=== PATIENT | female | born 2005 | race African-American/Black ===

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

== ENCOUNTER 2025-01-17 07:21 | Emergency (ER) | payer MEDICAID ==
[~2025-01-17] VITALS: Ht 160 cm; Wt 90.9 kg
[~2025-01-17 07:21] MED LIST changes: +CEPH500C PO; +IBUP-1456 PO
[2025-01-17 07:27] VITALS: PULSE 53; RESP 18; TEMP 98.2; O2SAT 99
--- NOTE | 2025-01-17 07:35 | ED.PDOC ---
GI ASSESSMENT HPI Comments 20 year old female brought in by EMS presents to the ED with a chief complaint of abdominal pain onset 2 days. Patient sates she has been experiencing diffused abdominal pain, nausea, vomiting, constipation for the past 2 days. LMP was early this month and states she began heavy bleeding 2 days ago as well as cramps. Patient was seen at hospital in [place] about 1 month ago, was scheduled fir a Cholecystectomy, left AMA prior to surgery. Per EMS, patient was bradycardiac on scene, fluids given as well as pain medication. PMHx ovarian cysts, gallstones, depression, anxiety, asthma. Denies fever, chills, cough, headache, dizziness, blurry vision, chest pain, shortness of breath. No other symptoms or modifying factors present at this time. Time Seen by MD: 07:24 Primary Care Provider: UNKNOWN Reviewed Notes: Medications, Allergies Allergies: Coded Allergies: NO KNOWN ALLERGIES (Unverified , 08/17/16) Home Meds Active Scripts Ibuprofen (Ibuprofen) 800 Mg Tab, 1 TAB PO TID, #30 TAB Prov:IKER LOMELI 07/11/23 Cephalexin Monohydrate (Cephalexin) 500 Mg Cap, 1 CAP PO QID, #40 CAP Prov:IKER LOMELI 07/11/23 Ondansetron Odt 4MG Tab (ZOFRAN PO) 4 Mg Tb, 1 TAB PO Q8HR, #20 TAB ODT TAB-DISSOLVE IN MOUTH, THEN SWALLOW as needed for nausea vomiting Prov:AKIKO POOLE SALESPERSON [place] 06/09/23 Dicyclomine Hcl (BENTYL CAPSULE) 10 Mg Cp, 2 TAB PO TID, #30 CAP As needed for abdominal cramping Prov:AKIKO POOLE SALESPERSON [place] 06/09/23 Amoxicillin & Pot Clavulanate (AUGMENTIN TABLET) 875 Mg Tb, 1 TAB PO BID for 10 Days, #20 TAB Prov:AKIKO POOLE SALESPERSON [place] 06/09/23 Pantoprazole Sodium Sesquihydr (Protonix) 40 Mg Tab, 40 MG PO DAILY, #30 TAB Prov:LIZETT GREER MD 05/25/23 Ondansetron Odt 4MG Tab (ZOFRAN PO) 4 Mg Tb, 4 MG PO Q8HP PRN for 5 Days, #15 T AB ODT TAB-DISSOLVE IN MOUTH, THEN SWALLOW Prov:LIZETT GREER MD 05/25/23 Information Source: Patient, Emergency Med Personnel Mode of Arrival: EMS Timing: Days Duration: Since onset Prehospital treatment: IVF, Pain Meds Severity: Moderate Recent: None Recent Hx of: Constipation Pain Location: Diffuse Associated sign and symptoms: Nausea, Vomiting, Constipation, Abdominal Pain Past Medical History PAST MEDICAL HISTORY: Anxiety, Asthma, Depression, Gallstones Surgical History: Denies all surgeries [employer]OR History: Ovarian Cysts Family History Family History: Reviewed,noncontributory to illness, Family hx of heart geno Social History Smoker: Cigarettes Alcohol: Occasionally Drugs: Marijuana Lives In: Home Constitutional: denies: chills, diaphoresis, fatigue, fever, malaise, sweats, weakness, others EENTM: denies: blurred vision, double vision, ear bleeding, ear discharge, ear drainage, ear pain, ear ringing, eye pain, eye redness, hearing loss, mouth pain, mouth swelling, nasal discharge, nose bleeding, nose congestion, nose pain, photophobia, tearing, throat pain, throat swelling, voice changes, others Respiratory: denies: cough, hemoptysis, orthopnea, SOB at rest, shortness of breath, SOB with excertion, stridor, wheezing, others Cardiovascular: denies: chest pain, dizzy spells, diaphoresis, Dyspnea on exertion, edema, irregular heart beat, left arm pain, lightheadedness, palpi tations, PND, syncope, others Gastrointestinal: reports: abdominal pain, constipated, nausea, vomiting; denies: abdomen distended, blood streaked bowels, diarrhea, dysphagia, difficulty swallowing, hematemesis, melena, poor appetite, poor fluid intake, rectal bleeding, rectal pain, others Genitourinary: denies: abnormal vagina bleeding, burning, dyspareunia, dysuria, flank pain, frequency, hematuria, incontinence, pain, , vagina discharge, urgency, others Neurological: denies: dizziness, fainting, headache, left sided numbness, left sided weakness, numbness, paresthesia, pre-existing deficit, right sided numbness, right sided weakness, seizure, speech problems, tingling, tremors, weakness, others Musculoskeletal: reports: back pain; denies: gout, joint pain, joint swelling, muscle pain, muscle stiffness, neck pain, others Integumetry: denies: bruises, change in color, change in hair/nails, dryness, laceration, lesions, lumps, rash, wounds, others Allergic/Immunocompromised: denies: Difficulty Healing, Frequent Infections, Hives, Itching, others Hematologic/Lymphatic: denies: anemia, blood clots, easy bleeding, easy bruising, swollen glands, others Endocrine: denies: excessive hunger, excessive sweating, excessive thirst, excessive urination, flushing, intolerance to cold, intolerance to heat, unexplained weight gain, unexplained weight loss, others Psychiatric: denies: anxiety, bipolar disorder, depression, hopeless, panic disorder, schizophrenia, sleepless, suicidal, others All Other Systems: Reviewed and Negative Physical Exam General Appearance: No Apparent Distress, Normal HEENT: Normal ENT Inspection, Pharynx Normal, TMs Normal Neck: Full Range of Motion, Non-Tender, Normal, Normal Inspection Respiratory: Chest Non-Tender, Lungs Clear, No Accessory Muscle Use, No Respiratory Distress, Normal Breath Sounds Cardiovascular: No Edema, No JVD, No Murmur, No Gallop, Normal Peripheral Pulses, Regular Rate/Rhythm Breast Exam: Deferred Gastrointestinal: No Organomegaly, Non Tender, No Pulsatile Mass, Normal Bowel Sounds, Soft Genitalia: Deferred Pelvic: Deferred Rectal: Deferred Extremities: No calf tenderness, Normal capillary refill, Normal inspection, Normal range of motion, Non-tender, No pedal edema Musculoskeletal : Apperance: Normal Neurologic: Alert, clinical tech II-XII nml as Tested, No Motor Deficits, Normal Affect, Normal Mood, No Sensory Deficits Cerebellar Function: Normal Reflexes: Normal Skin: Dry, Normal Color, Warm Lymphatic: No Adenopathy Was a procedure done? Was a procedure done?: No GI differential Dx Differential Diagnosis: Appendicitis, Cholecystitis, Gastritis/PUD, Gastroenteritis, Pancreatitis, Urolithiasis, Dehydration, Electrolyte Imbalance, Viral X-Ray, Labs, Meds, VS Vital Signs Date Time Temp Pulse Resp B/P (MAP) Pulse Ox O2 Delivery O2 Flow Rate FiO2 01/17/25 08:41 84 18 128/65 (86) 01/17/25 08:40 84 16 128/65 01/17/25 08:05 74 19 144/88 01/17/25 07:27 98.2 53 14 152/97 (115) 99 01/17/25 07:27 53 18 99 Room Air* 0 21 01/17/25 07:27 98.2 53 14 152/97 (115) 99 98.2 Lab Test 01/17/25 07:51 01/17/25 07:35 Range/Units White Blood Count 10.6 4.4-10.8 10^3/uL Red Blood Count 4.94 4.0-5.20 10^6/uL Hemoglobin 13.8 12.2-16.2 g/dL Hematocrit 42.2 36.0-46.0 % Mean Corpuscular Volume 85.4 80.0-100.0 fL Mean Corpuscular Hemoglobin 28.0 28.0-32.0 pg Mean Corpuscular Hemoglobin Concent 32.7 32.0-36.0 g/dL Red Cell Distribution Width 15.8 H 11.8-14.3 % Platelet Count 353 140-450 10^3/uL Mean Platelet Volume 6.9 6.9-10.8 fL Neutrophils (%) (Auto) 79.0 37.0-80.0 % Lymphocytes (%) (Auto) 14.2 10.0-50.0 % Monocytes (%) (Auto) 6.3 0.0-12.0 % Eosinophils (%) (Auto) 0.1 0.0-7.0 % Basophils (%) (Auto) 0.4 0.0-2.0 % Neutrophils # (Auto) 8.4 1.6-8.6 10 ^3/uL Lymphocytes # (Auto) 1.5 0.4-5.4 10 ^3/uL Monocytes # (Auto) 0.7 0-1.3 10 ^3/uL Eosinophils # (Auto) 0 0-0.8 10 ^3/uL Basophils # (Auto) 0 0-0.2 10 ^3/uL Nucleated Red Blood Cells 0.1 % Sodium Level 136 136-145 mmol/L Potassium Level 3.4 L 3.5-5.1 mmol/L Chloride Level 102 98-107 mmol/L Carbon Dioxide Level 23 20-31 mmol/L Anion Gap 11 5-15 Blood Urea Nitrogen 7 L 9-23 mg/dL Creatinine 0.78 0.550-1.02 mg/dL Glomerular Filtration Rate Calc 111 >90 mL/min BUN/Creatinine Ratio 9.0 L 10.0-20.0 Serum Glucose 108 H 74-106 mg/dL Calcium Level 9.9 8.7-10.4 mg/dL Urine Color Yellow Yellow Urine Clarity Turbid H Clear Urine pH 5.5 5.0-9.0 Urine Specific [place] 1.033 1.001-1.035 Urine Protein 1+ H Negative Urine Ketones 2+ H Negative Urine Blood 3+ H Negative /uL Urine Nitrite Negative Negative Urine Bilirubin Negative Negative Urine Urobilinogen Normal Negative mg/dL Urine Leukocyte Esterase Negative Negative /uL Urine RBC 17 0 - 4 /hpf Urine Microscopic WBC 6 H 0-5 /HPF Urine Squamous Epithelial Cells Mod <5 /hpf Urine Bacteria None seen None Seen /hpf Urine Mucus Few None Seen Urine Glucose Normal Normal mg/dL Urine Test Negative Negative Current Medications Medications (Trade) Dose Ordered Sig/Christiano Route Start Time Stop Time Status Last Admin Sodium Chloride 1,000 ml @ 1,000 mls/hr Q1H ONCE IV 01/17/25 07:45 01/17/25 08:44 DC 01/17/25 07:49 Ondansetron HCl (Zofran) 4 mg ONCE ONCE IV 01/17/25 07:45 01/17/25 07:46 DC 01/17/25 07:49 Morphine Sulfate 4 mg ONCE ONCE IV 01/17/25 08:00 01/17/25 08:01 DC 01/17/25 08:05 [place] [id number] Ph: [phone] DIAGNOSTIC IMAGING Diagnostic Imaging Report : [id number] Signed PATIENT: JUANITO OLSON ACCT: [id number] UNIT: [id number] : 2005 LOC: ER ROOM / BED: / AGE / SEX: 20 / F ADM STATUS: REG ER SERVICE [id number] ORDERING PHYSICIAN: ANA CRISTINA MENDOZA MD PROCEDURE(s): ABPLIV - CT AB PEL WITH IV CON ONLY REASON: abdominal pain ORDER NUMBER(s): [id number], ACCESSION NUMBER(s): [id number] Exam: CT CT AB PEL WITH IV CON ONLY History: abdominal pain Comparison Study: None available at time of dictation. Technique: Multidetector spiral CT of the abdomen was performed from lung bases to pubic symphysis. Axial imaging was performed with intravenous contrast following the uneventful administration of 100 ml Omnipaque 300. Coronal and sagittal multiplanar reformats were obtained from the axial data set by the technologist. Radiation Dose : 1. Abdomen/Pelvis: CTDIvol 18.4 mGy, DLP 921.71 mGy*cm. Findings: Lung Bases: Right lower lobe opacity. Visualized portions of the heart and pericardium are unremarkable. Liver: The liver is normal in size. No focal lesions. Gallbladder and Biliary Tree: The gallbladder is unremarkable. No intrahepatic or extrahepatic biliary ductal dilatation. Spleen: Unremarkable Pancreas: The pancreas enhances normally and there are no focal lesions. The main pancreatic duct is not dilated Adrenal Glands: Unremarkable Kidneys: Kidneys enhance symmetrically. No calculi or hydronephrosis. GI tract: The stomach is grossly normal in appearance. No evidence of small bowel wall thickening or abnormal dilatation to suggest bowel obstruction. Mild wall thickening of the ascending colon. The appendix is visualized and is normal. Peritoneum/mesentery/retroperitoneum. No evidence of free intraperitoneal air. No ascites. No evidence of suspicious lymphadenopathy. Abdominal Wall: Unremarkable. Vasculature: Abdominal aorta and main branches are unremarkable. Normal vascular enhancement. Urinary Bladder: Grossly unremarkable for degree of distention. Pelvic Organs: Unremarkable Musculoskeletal: No aggressive focal bony lesions, acute fractures or dislocation. IMPRESSION: 1. Mild wall thickening of the ascending colon, nonspecific. Acute colitis not excluded. 2. Normal appendix. 3. Right lower lobe opacity which may reflect atelectasis. ATED BY: ALYSHA PALAFOX MD DICTATED DATE/TIME: 01/17/25 1000 SIGNED BY: ALYSHA PALAFOX MD SIGNED DATE/TIME: 01/17/25 1000 CC: Time of 1ST Reevaluation: 07:54 Reevaluation 1ST: Unchanged Patient Education/Counseling: Diagnosis, Treatment, Prognosis Family Education/Counseling: No Family Present Additional Information The following tests were ordered, and results were reviewed by me: BMP, CBC, UA, PREGUA, CT AB PEL WITH IV CON Additional Information was gathered from interviewing the following independent historians: EMS I reviewed and agreed with the following test results read by other providers: CT AB PEL WITH IV CON I discussed treatment and results with medical personnel and: patient Departure 1 Departure Time of Disposition: 10:19 (Patient presented with abdominal pain that was concerning for possible appendicits, gastritis, cholecystitis, colitis, gastro enteritis, or orther possible surgical emergency. Data: 1. I ordered and reviewed the result of at least 3 labs including a CBC, BMP, and Urinalysis. 2. I independently interpreted the following tests: CT Abdoment and Pelvis is concerning for colitis .Risk:This patient has a high risk of morbidity due to further diagnostic testing or treatment and may suffer from an acute abdominal process disorder. Fortunately workup reveals colitis and patient can be safely discharged to home with outpatient follow up.) Impression: Primary Impression: Non-specific colitis Additional Impression: Generalized abdominal pain Disposition: HOME / SELF CARE / HOMELESS Condition: Stable Additional Instructions: You have colitis. This is an infection. You were prescribed antibiotics. Please take as directed. For pain you can take the followinam: Ibuprofen 400mg with food Noon: Acetaminophen 1000mg 4pm: Ibuprofen 400mg with food 8pm: Acetaminophen 1000mg You should follow up with your regular doctor within one week to ensure you are doing better. If your symptoms worsen or you have any other concerns then please return to the ER. e-Prescriptions Amoxicillin & Pot Clavulanate (AUGMENTIN TABLET) 875 Mg Tb 875 MG PO BID for 5 Days, #10 TAB Prov: ANA CRISTINA MENDOZA MD 01/17/25 Discharged With: Self Critical Care Note Critical Care Time?: No Stability Stability form required: No I personally scribed for ANA CRISTINA MENDOZA MD ([email or web address]) on 01/17/25 at 07:35. Electronically submitted by Lissette Mijares ([email or web address]). I personally scribed for ANA CRISTINA MENDOZA MD ([email or web address]) on 01/17/25 at 07:50. Electronically submitted by Lissette Mijares ([email or web address]). I personally scribed for ANA CRISTINA MENDOZA MD ([email or web address]) on 01/17/25 at 10:07. Electronically submitted by Lissette Mijares ([email or web address]). I personally scribed for ANA CRISTINA MENDOZA MD ([email or web address]) on 01/17/25 at 10:08. Electronically submitted by Lissette Mijares ([email or web address]). ANA CRISTINA MENDOZA MD Jan 17, 2025 07:35
[2025-01-17 07:49] LABS: Urine Bacteria None Seen /hpf (None Seen)
[2025-01-17] MEDS: SODIUM CHLORIDE 0.9% 1,000 ML IV ONE (07:49)
[2025-01-17] MEDS: ONDANSETRON HCL 4 MG/2 ML VIAL IV ONE (07:49)
[2025-01-17 08:05] LABS: Urine Blood 3+ /uL (Negative); Urine Clarity Turbid (Clear); Urine Color Yellow (Yellow); Urine Mucus FEW (None Seen); Urine Protein, UAD 1+ (Negative); Urine Specific Gravity 1.033 (1.001-1.035); Urine Squamous Epithelial Cell MOD /hpf (<5); Urine Urobilinogen Normal (Negative); Urine WBC 6 /HPF (0-5); Urine pH 5.5 (5.0-9.0)
[2025-01-17] MEDS: MORPHINE SULFATE 4 MG/ML SYR/VIAL IV ONE (08:05)
[2025-01-17 08:10] LABS: Chloride 102 mmol/L (98-107); Sodium 136 mmol/L (136-145)
[2025-01-17 08:11] LABS: Anion Gap 11 (5-15); Carbon Dioxide 23 mmol/L (20-31)
[2025-01-17 08:12] LABS: Calcium 9.9 mg/dL (8.7-10.4)
[2025-01-17 08:13] LABS: Basophils # (auto) 0 10 ^3/uL (0-0.2); Basophils % (auto) 0.4 % (0.0-2.0); Eosinophils # (auto) 0 10 ^3/uL (0-0.8); Eosinophils % (auto) 0.1 % (0.0-7.0); Hematocrit 42.2 % (36.0-46.0); Hemoglobin 13.8 g/dL (12.2-16.2); Lymphocytes # (auto) 1.5 10 ^3/uL (0.4-5.4); Lymphocytes % (auto) 14.2 % (10.0-50.0); Mean Corpuscular Hgb Conc. 32.7 g/dL (32.0-36.0); Mean Corpuscular Volume 85.4 fL (80.0-100.0); Monocytes # (auto) 0.7 10 ^3/uL (0-1.3); Monocytes % (auto) 6.3 % (0.0-12.0); Neutrophils # (auto) 8.4 10 ^3/uL (1.6-8.6); Nucleated Red Blood Cells % 0.1 %; Platelet Count (auto) 353 10^3/uL (140-450); Red Blood Cells 4.94 10^6/uL (4.0-5.20); Red Cell Distribution Width 15.8 % (11.8-14.3); White Blood Cell 10.6 10^3/uL (4.4-10.8)
[2025-01-17 08:18] LABS: Blood Urea Nitrogen 7 mg/dL (9-23); Glucose 108 mg/dL (74-106); Potassium 3.4 mmol/L (3.5-5.1)
[2025-01-17 08:41] VITALS: BP 128/65; PULSE 84; RESP 18
[2025-01-17] MEDS: IOHEXOL 300 MG/ML 100ML BOTTLE IJ ONE (09:42)
--- NOTE | 2025-01-17 10:02 | DVH ---
Exam: CT CT AB PEL WITH IV CON ONLY History: abdominal pain Comparison Study: None available at time of dictation. Technique: Multidetector spiral CT of the abdomen was performed from lung bases to pubic symphysis. A xial imaging was performed with intravenous contrast following the uneventful administration of 100 m l Omnipaque 300. Coronal and sagittal multiplanar reformats were obtained from the axial data set by the technologist. Radiation Dose : 1. Abdomen/Pelvis: CTDIvol 18.4 mGy, DLP 921.71 mGy*cm. Findings: Lung Bases: Right lower lobe opacity. Visualized portions of the heart and pericardium are unremarkab le. Liver: The liver is normal in size. No focal lesions. Gallbladder and Biliary Tree: The gallbladder is unremarkable. No intrahepatic or extrahepatic biliar y ductal dilatation. Spleen: Unremarkable Pancreas: The pancreas enhances normally and there are no focal lesions. The main pancreatic duct is not dilated Adrenal Glands: Unremarkable Kidneys: Kidneys enhance symmetrically. No calculi or hydronephrosis. GI tract: The stomach is grossly normal in appearance. No evidence of small bowel wall thickening or abnormal dilatation to suggest bowel obstruction. Mild wall thickening of the ascending colon. The ap pendix is visualized and is normal. Peritoneum/mesentery/retroperitoneum. No evidence of free intraperitoneal air. No ascites. No evidenc e of suspicious lymphadenopathy. Abdominal Wall: Unremarkable. Vasculature: Abdominal aorta and main branches are unremarkable. Normal vascular enhancement. Urinary Bladder: Grossly unremarkable for degree of distention. Pelvic Organs: Unremarkable Musculoskeletal: No aggressive focal bony lesions, acute fractures or dislocation. IMPRESSION: 1. Mild wall thickening of the ascending colon, nonspecific. Acute colitis not excluded. 2. Normal appendix. 3. Right lower lobe opacity which may reflect atelectasis.
[2025-01-17] MEDS ORDERED: AUG875T PO (10:21)
[2025-01-17] MEDS ORDERED: AMOXICILLIN/CLAVUL 875 MG TAB PO ONE (10:30)
== END 2025-01-17 10:32 | disposition home or self-care (01) ==
LOC: EDBD 07:21 → ER 07:21
DX: K52.9 Noninfective gastroenteritis and colitis, unspecified (principal); R10.84 Generalized abdominal pain; F41.9 Anxiety disorder, unspecified; F32.9 Major depressive disorder, single episode, unspecified; J45.909 Unspecified asthma, uncomplicated; F17.210 Nicotine dependence, cigarettes, uncomplicated; F15.90 Other stimulant use, unspecified, uncomplicated; Z79.1 Long term (current) use of non-steroidal anti-inflammatories (NSAID); Z79.899 Other long term (current) drug therapy
CPT/HCPCS: 36415; 74177; 80048; 81001; 81025; 85025; 96361; 96374; 96375; 99285; J2270; J2405; J7030; Q9967

== ENCOUNTER 2025-07-22 11:04 | Inpatient (IN) | payer MEDICAID, OTHER ==
[~2025-07-22] VITALS: Ht 160 cm; Wt 84.7 kg
--- NOTE | 2025-07-22 11:26 | ED.PDOC ---
GI ASSESSMENT HPI Comments 20 y.o female presents to the ED for a chief complaint of abdominal pain radiating to her back, associated with nausea and vomiting that started 3 hours ago. Patient reports she was at the center holding her new nephew when pain presented spontaneously, described as sharp, constant and has no alleviating factors. Patient denies any diarrhea, hematemesis, dysuria, fever or chills. Patient mentions hx of marijuana use but last use was 3-4 days ago. Chief Complaint: Nausea/Vomiting Time Seen by MD: 11:15 Primary Care Provider: UNKNOWN Reviewed Notes: Nurses Notes, Medications, Allergies Allergies: Coded Allergies: NO KNOWN ALLERGIES (Unverified , 08/17/16) Home Meds Active Scripts Amoxicillin & Pot Clavulanate (AUGMENTIN TABLET) 875 Mg Tb, 875 MG PO BID for 5 Days, #10 TAB Prov:ANA CRISTINA MENDOZA MD 01/17/25 Ibuprofen (Ibuprofen) 800 Mg Tab, 1 TAB PO TID, #30 TAB Prov:IKER LOMELI 07/11/23 Cephalexin Monohydrate (Cephalexin) 500 Mg Cap, 1 CAP PO QID, #40 CAP Prov:IKER LOMELI 07/11/23 Ondansetron Odt 4MG Tab (ZOFRAN PO) 4 Mg Tb, 1 TAB PO Q8HR, #20 TAB ODT TAB-DISSOLVE IN MOUTH, THEN SWALLOW as needed for nausea vomiting Prov:AKIKO POOLE Q WINDMILL MECHANIC 06/09/23 Dicyclomine Hcl (BENTYL CAPSULE) 10 Mg Cp, 2 TAB PO TID, #30 CAP As needed for abdominal cramping Prov:AKIKO POOLE Q WINDMILL MECHANIC 06/09/23 Amoxicillin & Pot Clavulanate (AUGMENTIN TABLET) 875 Mg Tb, 1 TAB PO BID for 10 Days, #20 TAB Prov:AKIKO POOLE Q WINDMILL MECHANIC 06/09/23 Pantoprazole Sodium Sesquihydr (Protonix) 40 Mg Tab, 40 MG PO DAILY, #30 TAB Prov:LIZETT GREER MD 05/25/23 Ondansetron Odt 4MG Tab (ZOFRAN PO) 4 Mg Tb, 4 MG PO Q8HP PRN for 5 Days, #15 TAB ODT TAB-DISSOLVE IN MOUTH, THEN SWALLOW Prov:LIZETT GREER MD 05/25/23 Information Source: Patient Mode of Arrival: Ambulatory Timing: Hours (3) Duration: Since onset Quality: Sharp Vomitus: Hard Stool: Normal Severity: Moderate Recent: None Recent Hx of: None Pain Location: Diffuse Modifying Factors: Nothing Associated sign and symptoms: Nausea, Vomiting, Abdominal Pain Past Medical History PAST MEDICAL HISTORY: Anxiety, Asthma, Depression, Gallstones Surgical History: Denies all surgeries 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 Family History Family History: Reviewed,noncontributory to illness, Family hx of heart geno Social History Smoker: Cigarettes Alcohol: Occasionally Drugs: Marijuana Lives In: Home Constitutional: denies: chills, diaphoresis, fatigue, fever, malaise, sweats, weakness, others EENTM: denies: blurred vision, double vision, ear bleeding, ear discharge, ear drainage, ear pain, ear ringing, eye pain, eye redness, hearing loss, mouth p ain, mouth swelling, nasal discharge, nose bleeding, nose congestion, nose pain, photophobia, tearing, throat pain, throat swelling, voice changes, others Respiratory: denies: cough, hemoptysis, orthopnea, SOB at rest, shortness of br eath, SOB with excertion, stridor, wheezing, others Cardiovascular: denies: chest pain, dizzy spells, diaphoresis, Dyspnea on exertion, edema, irregular heart beat, left arm pain, lightheadedness, palpitations, PND, syncope, others Gastrointestinal: reports: abdominal pain, nausea, vomiting; denies: abdomen distended, blood streaked bowels, constipated, diarrhea, dysphagia, difficulty swallowing, hematemesis, melena, poor appetite, poor fluid intake, rectal bleeding, rectal pain, others Genitourinary: denies: abnormal vagina bleeding, burning, dyspareunia, dysuria, flank pain, frequency, hematuria, incontinence, pain, , vagina discharge, urgency, others Neurological: denies: dizziness, fainting, headache, left sided numbness, left sided weakness, numbness, paresthesia, pre-existing deficit, right sided numbness, right sided weakness, seizure, speech problems, tingling, tremors, weakness, others Musculoskeletal: reports: back pain; denies: gout, joint pain, joint swelling, muscle pain, muscle stiffness, neck pain, others Integumetry: denies: bruises, change in color, change in hair/nails, dryness, laceration, lesions, lumps, rash, wounds, others Allergic/Immunocompromised: denies: Difficulty Healing, Frequent Infections, Hives, Itching, others Hematologic/Lymphatic: denies: anemia, blood clots, easy bleeding, easy bruising, swollen glands, others Endocrine: denies: excessive hunger, excessive sweating, excessive thirst, excessive urination, flushing, intolerance to cold, intolerance to heat, unexplained weight gain, unexplained weight loss, others Psychiatric: denies: anxiety, bipolar disorder, depression, hopeless, panic disorder, schizophrenia, sleepless, suicidal, others All Other Systems: Reviewed and Negative Physical Exam General Appearance: Moderate Distress HEENT: Normal ENT Inspection, Pharynx Normal, TMs Normal Neck: Full Range of Motion, Non-Tender, Normal, Normal Inspection Respiratory: Chest Non-Tender, Lungs Clear, No Accessory Muscle Use, No Respiratory Distress, Normal Breath Sounds Cardiovascular: No Edema, No JVD, No Murmur, No Gallop, Normal Peripheral Pulses, Regular Rate/Rhythm Breast Exam: Deferred Gastrointestinal: Diffuse, No Organomegaly, No Pulsatile Mass, Normal Bowel Sounds, Soft Genitalia: Deferred Pelvic: Deferred Rectal: Deferred Extremities: No calf tenderness, Normal capillary refill, Normal inspection, Normal range of motion, Non-tender, No pedal edema Musculoskeletal : Apperance: Normal Neurologic: Alert, bias binding folder II-XII nml as Tested, No Motor Deficits, Normal Affect, Normal Mood, No Sensory Deficits Cerebellar Function: Normal Reflexes: Normal Skin: Dry, Normal Color, Warm Peripheral Pulses: 3+ Radial (R), 3+ Radial (L) Lymphatic: No Adenopathy Was a procedure done? Was a procedure done?: No GI differential Dx Differential Diagnosis: Cholangitis, Cholecystitis, Diverticular disease, Esophagitis, Gastritis/PUD, Gastroenteritis, Ovarian cyst/torsion, Pancreatitis, Electrolyte Imbalance, Food Poisoning X-Ray, Labs, Meds, VS Vital Signs Date Time Temp Pulse Resp B/P (MAP) Pulse Ox O2 Delivery O2 Flow Rate FiO2 07/22/25 13:25 98.3 52 14 132/84 (100) 100 98.3 07/22/25 12:28 78 16 137/73 07/22/25 11:58 80 18 117/73 07/22/25 11:05 98.1 80 18 117/73 96 98.1 Lab Test 07/22/25 12:33 07/22/25 12:00 Range/Units Urine Color Light-yellow Yellow Urine Clarity Turbid H Clear Urine pH 8.0 5.0-9.0 Urine Specific [place] 1.017 1.001-1.035 Urine Protein Negative Negative Urine Ketones 1+ H Negative Urine Blood Negative Negative /uL Urine Nitrite Negative Negative Urine Bilirubin Negative Negative Urine Urobilinogen Normal Negative mg/dL Urine Leukocyte Esterase Negative Negative /uL Urine RBC <1 0 - 4 /hpf Urine Microscopic WBC 1 0-5 /HPF Urine Squamous Epithelial Cells Mod <5 /hpf Urine Bacteria Few H None Seen /hpf Urine Glucose Normal Normal mg/dL White Blood Count 5.8 4.4-10.8 10^3/uL Red Blood Count 4.59 4.0-5.20 10^6/uL Hemoglobin 13.0 12.2-16.2 g/dL Hematocrit 38.9 36.0-46.0 % Mean Corpuscular Volume 84.7 80.0-100.0 fL Mean Corpuscular Hemoglobin 28.4 28.0-32.0 pg Mean Corpuscular Hemoglobin Concent 33.5 32.0-36.0 g/dL Red Cell Distribution Width 15.5 H 11.8-14.3 % Platelet Count 292 140-450 10^3/uL Mean Platelet Volume 7.4 6.9-10.8 fL Neutrophils (%) (Auto) 40.4 37.0-80.0 % Lymphocytes (%) (Auto) 51.8 H 10.0-50.0 % Monocytes (%) (Auto) 6.3 0.0-12.0 % Eosinophils (%) (Auto) 0.7 0.0-7.0 % Basophils (%) (Auto) 0.8 0.0-2.0 % Neutrophils # (Auto) 2.3 1.6-8.6 10 ^3/uL Lymphocytes # (Auto) 3.0 0.4-5.4 10 ^3/uL Monocytes # (Auto) 0.4 0-1.3 10 ^3/uL Eosinophils # (Auto) 0 0-0.8 10 ^3/uL Basophils # (Auto) 0 0-0.2 10 ^3/uL Nucleated Red Blood Cells 0.1 % Sodium Level 141 136-145 mmol/L Potassium Level 4.0 3.5-5.1 mmol/L Chloride Level 110 H 98-107 mmol/L Carbon Dioxide Level 22 20-31 mmol/L Anion Gap 9 5-15 Blood Urea Nitrogen < 5 L 9-23 mg/dL Creatinine 0.78 0.550-1.02 mg/dL Glomerular Filtration Rate Calc 111 >90 mL/min BUN/Creatinine Ratio 6.4 L 10.0-20.0 Serum Glucose 79 74-106 mg/dL Calcium Level 9.1 8.7-10.4 mg/dL Current Medications Medications (Trade) Dose Ordered Sig/Christiano Route Start Time Stop Time Status Last Admin Sodium Chloride 1,000 ml @ 1,000 mls/hr Q1H ONCE IV 07/22/25 11:30 07/22/25 12:29 DC 07/22/25 11:56 Morphine Sulfate 4 mg ONCE ONCE IV 07/22/25 11:30 07/22/25 11:31 DC 07/22/25 11:58 Ondansetron HCl (Zofran) 4 mg ONCE ONCE IV 07/22/25 11:30 07/22/25 11:31 DC 07/22/25 11:56 Patient alert. Complaining of abdominal pain. Vitals stable. Answering questions. Establish intravenous access. Was given fluids. Was given morphine. Was given Zofran. WBC within normal limits. Hemoglobin within normal limits. Explained to the patient. Continue monitoring. Continues to have abdominal pain. CT scan of the abdomen. She will be admitted for further studies to resolve her abdominal pain. Time of 1ST Reevaluation: 12:00 Reevaluation 1ST: Unchanged Patient Education/Counseling: Diagnosis, Treatment, Prognosis Family Education/Counseling: No Family Present SEPSIS Sepsis Screen Date sepsis recognized/suspect: Jul 22, 2025 Time Sepsis recognized/suspect: 1107 Recent Procedure: No On Antibiotic Therapy: No Respiratory Rate >20: No Heart Rate >90: No Temp<36 C (96.8 F) or >38.3 C: No SBP <90 or MAP <65 mmHG: No New Acute Mental Status Change: No Is the patient on CPAP, BIPAP,: No Physician Orders Ct Ab Pel Wo Con-No Oral Or Iv (07/22/25 13:46) 1 Liter Bolus Of 0.9% Ns (07/22/25 14:00) Drug Screen (07/22/25 13:46) Vital Signs Date Time Temp Pulse Resp B/P (MAP) Pulse Ox O2 Delivery O2 Flow Rate FiO2 07/22/25 13:25 98.3 52 14 132/84 (100) 100 98.3 07/22/25 12:28 78 16 137/73 07/22/25 11:58 80 18 117/73 07/22/25 11:05 98.1 80 18 117/73 96 98.1 Laboratory Tests Test 07/22/25 12:00 White Blood Count 5.8 10^3/uL (4.4-10.8) Medications Medications Dose Ordered Sig/Christiano Route Start Time Stop Time Status Last Admin Dose Admin Morphine Sulfate 4 mg ONCE ONCE IV 07/22/25 11:30 07/22/25 11:31 DC 07/22/25 11:58 Ondansetron HCl 4 mg ONCE ONCE IV 07/22/25 11:30 07/22/25 11:31 DC 07/22/25 11:56 Sodium Chloride 1,000 ml @ 1,000 mls/hr Q1H ONCE IV 07/22/25 11:30 07/22/25 12:29 DC 07/22/25 11:56 Departure 1 Departure Time of Disposition: 13:46 Impression: Primary Impression: Cannabinoid hyperemesis syndrome Disposition: 09 ADMITTED INPATIENT Admit to: Med Surg Condition: Guarded Critical Care Note Critical Care Time?: No Stability Stability form required: No I personally scribed for RIGO URIBE MD ([email or web address]) on 07/22/25 at 11:26. Electronically submitted by Rosio Arnold ([facility]). RIGO URIBE MD Jul 22, 2025 11:26
[2025-07-22] MEDS: SODIUM CHLORIDE 0.9% 1,000 ML IV ONE ×3 (11:56→15:53)
[2025-07-22] MEDS: ONDANSETRON HCL 4 MG/2 ML VIAL IV ONE (11:56)
[2025-07-22] MEDS: MORPHINE SULFATE 4 MG/ML SYR/VIAL IV ONE (11:58)
[2025-07-22 12:42] LABS: Hematocrit 38.9 % (36.0-46.0); Hemoglobin 13.0 g/dL (12.2-16.2); Mean Corpuscular Hemoglobin 28.4 pg (28.0-32.0); Mean Corpuscular Volume 84.7 fL (80.0-100.0); Nucleated Red Blood Cells % 0.1 %
[2025-07-22 12:45] LABS: Urine Protein, UAD Negative (Negative)
[2025-07-22 12:48] LABS: Potassium 4.0 mmol/L (3.5-5.1); Sodium 141 mmol/L (136-145)
[2025-07-22 12:49] LABS: Anion Gap 9 (5-15); Calcium 9.1 mg/dL (8.7-10.4); Carbon Dioxide 22 mmol/L (20-31)
[2025-07-22 12:54] LABS: Chloride 110 mmol/L (98-107); Glucose 79 mg/dL (74-106)
[2025-07-22 12:57] LABS: BUN/Creatinine Ratio 6.4 (10.0-20.0); Blood Urea Nitrogen < 5 mg/dL (9-23)
[2025-07-22] MEDS: HYDROcodone-ACET 10/325MG TAB PO ONE (13:51)
[2025-07-22 14:26] LABS: Opiate Scree,Urine Pos (NEGATIVE)
[2025-07-22 14:28] LABS: Amphetamine Screen, Urine Neg (NEGATIVE); Barbiturate Scree,Urine Neg (NEGATIVE); Benzodiazephine Screen, Urine Neg (NEGATIVE); Cannabinoid Screen, Urine Pos (NEGATIVE); Cocaine Screen, Urine Neg (NEGATIVE); Phencyclidine Screen, Urine Neg (NEGATIVE)
--- NOTE | 2025-07-22 14:28 | DVH ---
CT CT AB PEL WO CON-NO ORAL OR IV INDICATION: colitis EXAM DATE: 07/22/2025 01:50 PM COMPARISON: US PELVIC on DOS: 06/09/23, CT CT AB PEL WO CON-NO ORAL OR IV on DOS: 06/08/23, CT ABD PELV IS WO CONTRAST on DOS: 12/17/21 RADIATION DOSE: CTDIvol: 11 mGy, DLP: 583 mGy*cm PROCEDURE: Helical CT images were obtained of the abdomen and pelvis without IV contrast Sagittal and coronal reconstructions are provided. ORAL CONTRAST: None. ADDITIONAL IMAGES / REFORMATS: None All C T scans at this medical facility are performed using dose modulation techniques as appropriate to a p erformed exam including the following: Automated exposure control was utilized; adjustment of the MA and/or KV according to patient size; and use of iterative reconstruction technique. FINDINGS: LUNG BASE: Normal. LIVER: Normal. GALLBLADDER AND BILIARY TREE: No calcified gallstones. Normal caliber wall. No intra- or extrahepatic biliary ductal dilation. PANCREAS: Normal. SPLEEN: Normal. BOWEL: Normal. Normal appendix. ADRENALS: Normal. KIDNEYS AND URETER: Normal. BLADDER: Normal. REPRODUCTIVE ORGANS: 4.9 cm left ovarian cystic lesion. LYMPH NODES:No lymphadenopathy. PERITONEUM: No ascites or free air. No other fluid collection. VESSELS: Normal RETROPERITONEUM: Normal. ABDOMINAL WALL: Normal. BONES: Normal. IMPRESSION: No acute intraabdominal abnormality. 4.9 cm left ovarian cystic lesion is incompletely characterized. Consider pelvic US.
--- NOTE | 2025-07-22 14:49 | DVHHP2 ---
Admitting Diagnosis: Nausea and vomiting History of Present Illness 20 y.o female presents to the ED for a chief complaint of abdominal pain radiating to her back, associated with nausea and vomiting that started 3 hours ago. Patient reports she was at the center holding her new nephew when pain presented spontaneously, described as sharp, constant and has no alleviating factors. Patient denies any diarrhea, hematemesis, dysuria, fever or chills. Patient mentions hx of marijuana use but last use was 3-4 days ago. 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 Family History Family History: Reviewed,noncontributory to illness, Family hx of heart geno Social History Smoker: Cigarettes Alcohol: Occasionally Drugs: Marijuana Lives In: Home Allergies: Coded Allergies: NO KNOWN ALLERGIES (Unverified , 08/17/16) Home Meds Active Scripts Amoxicillin & Pot Clavulanate (AUGMENTIN TABLET) 875 Mg Tb, 875 MG PO BID for 5 Days, #10 TAB Prov:ANA CRISTINA MENDOZA MD 01/17/25 Ibuprofen (Ibuprofen) 800 Mg Tab, 1 TAB PO TID, #30 TAB Prov:IKER LOMELI 07/11/23 Cephalexin Monohydrate (Cephalexin) 500 Mg Cap, 1 CAP PO QID, #40 CAP Prov:IKER LOMELI 07/11/23 Ondansetron Odt 4MG Tab (ZOFRAN PO) 4 Mg Tb, 1 TAB PO Q8HR, #20 TAB ODT TAB-DISSOLVE IN MOUTH, THEN SWALLOW as needed for nausea vomiting Prov:AKIKO POOLE CONTENT DEVELOPMENT MANAGER 06/09/23 Dicyclomine Hcl (BENTYL CAPSULE) 10 Mg Cp, 2 TAB PO TID, #30 CAP As needed for abdominal cramping Prov:AKIKO POOLE CONTENT DEVELOPMENT MANAGER 06/09/23 Amoxicillin & Pot Clavulanate (AUGMENTIN TABLET) 875 Mg Tb, 1 TAB PO BID for 10 Days, #20 TAB Prov:AKIKO POOLE CONTENT DEVELOPMENT MANAGER 06/09/23 Pantoprazole Sodium Sesquihydr (Protonix) 40 Mg Tab, 40 MG PO DAILY, #30 TAB Prov:LIZETT GREER MD 05/25/23 Ondansetron Odt 4MG Tab (ZOFRAN PO) 4 Mg Tb, 4 MG PO Q8HP PRN for 5 Days, #15 TAB ODT TAB-DISSOLVE IN MOUTH, THEN SWALLOW Prov:LIZETT GREER MD 05/25/23 Vital Signs Vital Signs Date Time Temp Pulse Resp B/P (MAP) Pulse Ox O2 Delivery O2 Flow Rate FiO2 07/22/25 15:13 55 18 07/22/25 13:25 98.3 132/84 (100) 100 98.3 Physical Exam Generally-70 years old woman, well nourished well developed. Mild distress HEENT-H one nine swelling Heart-regular rate and rhythm Lungs clear to auscultate Abdomen soft, epigastrium, nondistended Musculoskeletal-no edema cyanosis Neuro-AO x3, no focal deficits SEPSIS Sepsis Screen Date sepsis recognized/suspect: Jul 22, 2025 Time Sepsis recognized/suspect: 1107 Recent Procedure: No On Antibiotic Therapy: No Respiratory Rate >20: No Heart Rate >90: No Temp<36 C (96.8 F) or >38.3 C: No SBP <90 or MAP <65 mmHG: No New Acute Mental Status Change: No Is the patient on CPAP, BIPAP,: No Physician Orders Ct Ab Pel Wo Con-No Oral Or Iv (07/22/25 13:46) Admit (07/22/25 15:22) Code Status (07/22/25 15:22) Vital Signs .PER UNIT PROTOCOL (07/22/25 15:22) Review Orders With Adm. (07/22/25 15:22) Encourage Activity As Tolerate (07/22/25 15:22) Regular Diet (07/22/25 Dinner) Sodium Chloride Lock (Saline Lock Ns) (07/22/25 22:00) Vital Signs Date Time Temp Pulse Resp B/P (MAP) Pulse Ox O2 Delivery O2 Flow Rate FiO2 07/22/25 15:13 55 18 07/22/25 13:25 98.3 52 14 132/84 (100) 100 98.3 07/22/25 12:28 78 16 137/73 07/22/25 11:58 80 18 117/73 07/22/25 11:05 98.1 80 18 117/73 96 98.1 Laboratory Tests Test 07/22/25 12:00 White Blood Count 5.8 10^3/uL (4.4-10.8) Medications Medications Dose Ordered Sig/Christiano Route Start Time Stop Time Status Last Admin Dose Admin Acetaminophen/ Hydrocodone Bitart 1 tab ONCE ONCE PO 07/22/25 13:45 07/22/25 13:46 DC 07/22/25 13:51 Morphine Sulfate 4 mg ONCE ONCE IV 07/22/25 11:30 07/22/25 11:31 DC 07/22/25 11:58 Ondansetron HCl 4 mg ONCE ONCE IV 07/22/25 11:30 07/22/25 11:31 DC 07/22/25 11:56 Sodium Chloride 1,000 ml @ 1,000 mls/hr Q1H ONCE IV 07/22/25 11:30 07/22/25 12:29 DC 07/22/25 11:56 Sodium Chloride 1,000 ml @ 1,000 mls/hr Q1H ONCE IV 07/22/25 14:00 07/22/25 14:59 DC 07/22/25 13:53 Results Labs Test 07/22/25 12:33 07/22/25 12:00 Range/Units Urine Color Light-yellow Yellow Urine Clarity Turbid H Clear Urine pH 8.0 5.0-9.0 Urine Specific [place] 1.017 1.001-1.035 Urine Protein Negative Negative Urine Ketones 1+ H Negative Urine Blood Negative Negative /uL Urine Nitrite Negative Negative Urine Bilirubin Negative Negative Urine Urobilinogen Normal Negative mg/dL Urine Leukocyte Esterase Negative Negative /uL Urine RBC <1 0 - 4 /hpf Urine Microscopic WBC 1 0-5 /HPF Urine Squamous Epithelial Cells Mod <5 /hpf Urine Bacteria Few H None Seen /hpf Urine Glucose Normal Normal mg/dL Urine Opiates Screen Pos NEGATIVE Urine Fentanyl Screen Neg NEGATIVE Urine Barbiturates Screen Neg NEGATIVE Urine Phencyclidine Screen Neg NEGATIVE Urine Amphetamines Screen Neg NEGATIVE Urine Benzodiazepines Screen Neg NEGATIVE Urine Cocaine Screen Neg NEGATIVE Urine Cannabinoids Screen Pos NEGATIVE White Blood Count 5.8 4.4-10.8 10^3/uL Red Blood Count 4.59 4.0-5.20 10^6/uL Hemoglobin 13.0 12.2-16.2 g/dL Hematocrit 38.9 36.0-46.0 % Mean Corpuscular Volume 84.7 80.0-100.0 fL Mean Corpuscular Hemoglobin 28.4 28.0-32.0 pg Mean Corpuscular Hemoglobin Concent 33.5 32.0-36.0 g/dL Red Cell Distribution Width 15.5 H 11.8-14.3 % Platelet Count 292 140-450 10^3/uL Mean Platelet Volume 7.4 6.9-10.8 fL Neutrophils (%) (Auto) 40.4 37.0-80.0 % Lymphocytes (%) (Auto) 51.8 H 10.0-50.0 % Monocytes (%) (Auto) 6.3 0.0-12.0 % Eosinophils (%) (Auto) 0.7 0.0-7.0 % Basophils (%) (Auto) 0.8 0.0-2.0 % Neutrophils # (Auto) 2.3 1.6-8.6 10 ^3/uL Lymphocytes # (Auto) 3.0 0.4-5.4 10 ^3/uL Monocytes # (Auto) 0.4 0-1.3 10 ^3/uL Eosinophils # (Auto) 0 0-0.8 10 ^3/uL Basophils # (Auto) 0 0-0.2 10 ^3/uL Nucleated Red Blood Cells 0.1 % Sodium Level 141 136-145 mmol/L Potassium Level 4.0 3.5-5.1 mmol/L Chloride Level 110 H 98-107 mmol/L Carbon Dioxide Level 22 20-31 mmol/L Anion Gap 9 5-15 Blood Urea Nitrogen < 5 L 9-23 mg/dL Creatinine 0.78 0.550-1.02 mg/dL Glomerular Filtration Rate Calc 111 >90 mL/min BUN/Creatinine Ratio 6.4 L 10.0-20.0 Serum Glucose 79 74-106 mg/dL Calcium Level 9.1 8.7-10.4 mg/dL Primary Diagnosis Nausea and vomiting likely due to cannabinoid hyperemesis syndrome Plan CT abdomen and pelvis shows no acute any infection IV fluids Antiemetic Pain control Full code Lovenox for DVT prophylaxis Regular diet GI prophylaxis with a PPI Plan discussed with: Patient Problems List: (1) Cannabinoid hyperemesis syndrome Status: Acute Date of Service: Jul 22, 2025 Billing Provider: BOBO MOSLEY MD Common Visit Codes: [id number] INP/OBS CARE (MOD) BOBO MOSLEY MD Jul 22, 2025 14:49
[2025-07-22] MEDS ORDERED: ONDANSETRON HCL 4 MG/2 ML VIAL IV PRN (15:30)
[2025-07-22] MEDS ORDERED: ACETAMINOPHEN 325 MG TAB PO PRN (15:30)
[2025-07-22] MEDS ORDERED: DOCUSATE SOD 100 MG CAP PO PRN (15:30)
[2025-07-22 18:15] VITALS: BP 129/60; PULSE 58; RESP 16; TEMP 98.2; O2SAT 98
[2025-07-22] MEDS: HYDROcodone-ACET 5/325MG TAB PO PRN (18:54)
[2025-07-22 20:00] VITALS: BP 114/70; PULSE 64; RESP 15; TEMP 98.2; O2SAT 98
[2025-07-22] MEDS: SODIUM CHLOR 0.9% PF (SALINE LOCK) 10ML VIAL/SYR IV SCH (23:06)
[2025-07-23] VITALS (7 sets, daily range): BP systolic 125–148; BP diastolic 73–86; PULSE 50–70; RESP 14–18; TEMP 97.8–98.9; O2SAT 97–100
[2025-07-23] MEDS: HYDROmorphone HCL 2 MG/ML VL/or syr IV PRN (00:37)
[2025-07-23 05:08] LABS: Hematocrit 35.4 % (36.0-46.0); Hemoglobin 11.6 g/dL (12.2-16.2); Mean Corpuscular Hemoglobin 28.2 pg (28.0-32.0); Mean Corpuscular Volume 85.7 fL (80.0-100.0); Nucleated Red Blood Cells % 0.2 %
[2025-07-23 05:15] LABS: Albumin 3.8 g/dL (3.2-4.8); Alkaline Phosphatase 68 U/L (46-116); Anion Gap 7 (5-15); BUN/Creatinine Ratio 6.5 (10.0-20.0); Carbon Dioxide 23 mmol/L (20-31); Glucose 88 mg/dL (74-106); Magnesium 2.1 mg/dL (1.6-2.6); Potassium 3.9 mmol/L (3.5-5.1); Sodium 139 mmol/L (136-145); Total Protein 6.0 g/dL (5.7-8.2)
[2025-07-23 05:16] LABS: Bilirubin, Total 0.7 mg/dL (0.2-1.0)
[2025-07-23 05:22] LABS: Alanine Aminotransferase < 9 U/L (7-40); Blood Urea Nitrogen 6 mg/dL (9-23); Calcium 8.6 mg/dL (8.7-10.4); Chloride 109 mmol/L (98-107)
[2025-07-23] MEDS: ENOXAPARIN SOD 40 MG/0.4 ML SYRINGE SC SCH (08:18)
[2025-07-23] MEDS ORDERED: HALOPERIDOL LACTATE 5 MG/ML INJ VIAL IM PRN (10:00)
[2025-07-23] MEDS: MAALOX PLUS or MAALOX 30 ML PO SCH (10:39)
[2025-07-23] MEDS: HALOPERIDOL LACTATE 5 MG/ML INJ VIAL IM ONE (10:40)
[2025-07-23] MEDS: FAMOTIDINE 20 MG TAB PO SCH (10:41)
[2025-07-23] MEDS: diphenhdrAMINE HCL 50 MG/1 ML VL ONE (12:42)
--- NOTE | 2025-07-23 15:05 | DVHPN2 ---
Assessment/Plan Assessment/Plan Subjective History of Present Illness 20-year-old female with a history of anxiety, asthma, depression, ovarian cysts, and gallstones presents to the ED with abdominal pain, nausea, and vomiting that started 3 hours prior to admission. The patient reports sudden onset of abdominal pain localized around the belly button, described as mild. Nausea and vomiting accompanied the pain, with vomit described as green, dark yellow, and foamy. No diarrhea, chills, or fever were reported. This is the first occurrence of these symptoms. The patient ate a taco from [employer] the night before admission, which may be related to her symptoms. She also reports occasional marijuana use, with last use 3-4 days ago. The patient denies recent illness, travel, or exposure to sick individuals. She is not currently taking any medications. Associated symptoms include a raw mouth and sore throat, without trauma or swelling. The patient also notes increased urinary frequency, possibly due to fluid intake. The patient recently moved from [place] to [place] and is in the process of finding a new doctor. 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 Social history includes occasional alcohol use, but she denies smoking cigarettes or using other drugs. Objective Physical Examination General: Alert and oriented. HEENT: Moist mucous membranes. Raw mouth and sore throat noted, without trauma or swelling. Respiratory: Clear breath sounds. Cardiovascular: Regular heart rate and rhythm. Abdomen: Soft, non-tender abdomen with slight epigastric tenderness. Musculoskeletal: Lower extremity exam normal. 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 Plan discussed with: Patient My Orders Orders - AUGIE EGAN MD Procedure Category Date Status Time Haloperidol Lactate PHA 07/23/25 In Process Injection (Haldol) 10:00 Famotidine Tablet PHA 07/23/25 In Process (Pepcid Tablet) 10:00 Alum & Mag PHA 07/23/25 In Process Hydrox-Simethicone 12:00 Date of Service: Jul 23, 2025 Billing Provider: AUGIE EGAN MD Common Visit Codes: [id number] INP/OBS CARE(MOD) AUGIE EGAN MD Jul 23, 2025 15:05
--- NOTE | 2025-07-23 15:57 | DVH ---
ULTRASOUND ABDOMEN, LIMITED RIGHT UPPER QUADRANT: REASON FOR EXAM: cholelithiasis. r/o cholecystitis TECHNIQUE: Real-time sector scans in the transverse and longitudinal planes were obtained through th e right upper quadrant of the abdomen. FINDINGS: The liver is at the upper limits of normal for size measuring 17.4 cm in length. The liver surface appears smooth. There is no intrahepatic nor extrahepatic biliary ductal dilatation. The co mmon bile duct measures 4 mm. The gallbladder is partially contracted. No gallstone is identified. There is no gallbladder wall thickening. There is no sonographic Lilly's sign. The pancreas is obscured by bowel gas. The right kidney measures 9.5 cm. No hydronephrosis or nephrolithiasis is identified. There is no e vidence of right renal mass or cyst. The visualized portions of the abdominal aorta demonstrate no evidence of aneurysmal dilatation. The visualized inferior vena cava is unremarkable. There is no free fluid identified in the right upper quadrant. IMPRESSION: No gallstone identified. No sonographic Lilly's sign. The gallbladder is not distended. No evidence for acute cholecystitis.
[2025-07-24 01:00] VITALS: BP 128/75; PULSE 52; RESP 18; TEMP 98.9; O2SAT 100
[2025-07-24 05:00] VITALS: BP 107/42; PULSE 57; RESP 18; TEMP 97.8; O2SAT 100
[2025-07-24 07:56] LABS: Hematocrit 37.5 % (36.0-46.0); Hemoglobin 12.5 g/dL (12.2-16.2); Mean Corpuscular Hemoglobin 28.4 pg (28.0-32.0); Mean Corpuscular Volume 85.5 fL (80.0-100.0)
[2025-07-24 08:00] VITALS: PULSE 57; RESP 18; O2SAT 99
[2025-07-24 08:03] LABS: Alanine Aminotransferase 10 U/L (7-40); Albumin 3.8 g/dL (3.2-4.8); Alkaline Phosphatase 66 U/L (46-116); Anion Gap 8 (5-15); Bilirubin, Total 0.7 mg/dL (0.2-1.0); Calcium 8.7 mg/dL (8.7-10.4); Carbon Dioxide 24 mmol/L (20-31); Chloride 106 mmol/L (98-107); Glucose 98 mg/dL (74-106); Magnesium 2.0 mg/dL (1.6-2.6); Potassium 3.8 mmol/L (3.5-5.1); Sodium 138 mmol/L (136-145); Total Protein 6.3 g/dL (5.7-8.2)
[2025-07-24 08:06] LABS: BUN/Creatinine Ratio 5.7 (10.0-20.0); Blood Urea Nitrogen < 5 mg/dL (9-23)
[2025-07-24 08:57] VITALS: BP 120/79; PULSE 57; RESP 18; TEMP 98.7; O2SAT 99
[2025-07-24 09:30] LABS: Total Cells Counted 100.0 (100)
--- NOTE | 2025-07-24 09:38 | DVHPNRES ---
Progress Note Objective vital signs Vital Sign Date Time Temp Pulse Resp B/P (MAP) Pulse Ox O2 Delivery O2 Flow Rate FiO2 07/24/25 08:57 98.7 57 18 120/79 (93) 99 98.7 07/23/25 20:00 Room Air* 0 21 Total Intake and Output 07/23/25 07/23/25 07/24/25 15:00 23:00 07:00 Intake Total 500 ml 800 ml Balance 500 ml 800 ml medications Current Medications Medications Dose Ordered Sig/Christiano Route Start Time Stop Time Status Last Admin Dose Admin Sodium Chloride 10 ml Q8HR IV 07/22/25 22:00 07/24/25 05:50 10 ML Acetaminophen 650 mg Q6HP PRN PO 07/22/25 15:30 Acetaminophen/ Hydrocodone Bitart 1 tab Q4HP PRN PO 07/22/25 15:30 07/24/25 05:49 1 TAB Ondansetron HCl 4 mg Q4HP PRN IV 07/22/25 15:30 Haloperidol Lactate 2.5 mg Q8HP PRN IM 07/23/25 10:00 Famotidine 20 mg Q12HR PO 07/23/25 10:00 07/23/25 21:20 20 MG Al Hydrox/Mg Hydrox/Simethicone 30 ml Q6HR PO 07/23/25 12:00 07/24/25 05:45 30 ML laboratory and microbiology Laboratory Tests 07/24/25 06:24 Test 07/24/25 06:24 Range/Units Serum Glucose 98 74-106 mg/dL SHAUNA GILBERT RESIDENT Jul 24, 2025 09:38
[2025-07-24] MEDS: POLYETHYLENE GLYCOL 17 GM PWDR PO ONE (11:15)
[2025-07-24] MEDS: SODIUM CHLORIDE 0.9% 1,000 ML IV ONE (11:15)
[2025-07-24 12:34] VITALS: BP 130/86; PULSE 59; RESP 18; TEMP 98.2; O2SAT 100
[2025-07-24] MEDS ORDERED: DOCU-94 PO (13:02)
--- NOTE | 2025-07-24 18:08 | DVHDSRES ---
Discharge Summary Date of Admission Resident Creating Document: SHAUNA GILBERT RESIDENT Jul 22, 2025 at 15:22 Date of Discharge: Jul 24, 2025 Admitting Diagnosis Intractable Abdominal pain, nausea and vomiting Labs/Diagnostic Data: Laboratory Results Test 07/24/25 06:24 07/23/25 12:25 07/23/25 04:08 07/22/25 12:33 White Blood Count 5.7 10^3/uL (4.4-10.8) Red Blood Count 4.39 10^6/uL (4.0-5.20) Hemoglobin 12.5 g/dL (12.2-16.2) Hematocrit 37.5 % (36.0-46.0) Mean Corpuscular Volume 85.5 fL (80.0-100.0) Mean Corpuscular Hemoglobin 28.4 pg (28.0-32.0) Mean Corpuscular Hemoglobin Concent 33.2 g/dL (32.0-36.0) Red Cell Distribution Width 14.5 % (11.8-14.3) Platelet Count 241 10^3/uL (140-450) Mean Platelet Volume 7.8 fL (6.9-10.8) Neutrophils (%) (Auto) % (37.0-80.0) Lymphocytes (%) (Auto) % (10.0-50.0) Monocytes (%) (Auto) % (0.0-12.0) Basophils (%) (Auto) % (0.0-2.0) Neutrophils # (Auto) 10 ^3/uL (1.6-8.6) Lymphocytes # (Auto) 10 ^3/uL (0.4-5.4) Monocytes # (Auto) 10 ^3/uL (0-1.3) Differential Total Cells Counted 100.0 (100) Neutrophils % (Manual) 22 (37.0-80.0) Band Neutrophils % (Manual) 0 Lymphocytes % (Manual) 61 (10.0-50.0) Monocytes % (Manual) 15 (0-12) Eosinophils % (Manual) 2 (0-7) Basophils % (Manual) 0 (0.0-2.0) Metamyelocytes % (manual) 0 Myelocytes % (Manual) 0 Promyelocytes % (Manual) 0 Blast Cells % (Manual) 0 Reactive Lymphocytes 0 Platelet Estimate Adequate Sodium Level 138 mmol/L (136-145) Potassium Level 3.8 mmol/L (3.5-5.1) Chloride Level 106 mmol/L (98-107) Carbon Dioxide Level 24 mmol/L (20-31) Anion Gap 8 (5-15) Blood Urea Nitrogen < 5 mg/dL (9-23) Creatinine 0.87 mg/dL (0.550-1.02) Glomerular Filtration Rate Calc 97 mL/min (>90) BUN/Creatinine Ratio 5.7 (10.0-20.0) Serum Glucose 98 mg/dL (74-106) Calcium Level 8.7 mg/dL (8.7-10.4) Magnesium Level 2.0 mg/dL (1.6-2.6) Total Bilirubin 0.7 mg/dL (0.2-1.0) Aspartate Amino Transferase (AST) 16 U/L (13-40) Alanine Aminotransferase (ALT) 10 U/L (7-40) Alkaline Phosphatase 66 U/L (46-116) Total Protein 6.3 g/dL (5.7-8.2) Albumin 3.8 g/dL (3.2-4.8) POC Glucose 94 mg/dl (70-106) Eosinophils (%) (Auto) 1.4 % (0.0-7.0) Eosinophils # (Auto) 0.1 10 ^3/uL (0-0.8) Basophils # (Auto) 0 10 ^3/uL (0-0.2) Nucleated Red Blood Cells 0.2 % Lipase 29 U/L (12-53) Urine Color Light-yellow (Yellow) Urine Clarity Turbid (Clear) Urine pH 8.0 (5.0-9.0) Urine Specific [place] 1.017 (1.001-1.035) Urine Protein Negative (Negative) Urine Ketones 1+ (Negative) Urine Blood Negative /uL (Negative) Urine Nitrite Negative (Negative) Urine Bilirubin Negative (Negative) Urine Urobilinogen Normal mg/dL (Negative) Urine Leukocyte Esterase Negative /uL (Negative) Urine RBC <1 /hpf (0 - 4) Urine Microscopic WBC 1 /HPF (0-5) Urine Squamous Epithelial Cells Mod /hpf (<5) Urine Bacteria Few /hpf (None Seen) Urine Glucose Normal mg/dL (Normal) Urine Opiates Screen Pos (NEGATIVE) Urine Fentanyl Screen Neg (NEGATIVE) Urine Barbiturates Screen Neg (NEGATIVE) Urine Phencyclidine Screen Neg (NEGATIVE) Urine Amphetamines Screen Neg (NEGATIVE) Urine Benzodiazepines Screen Neg (NEGATIVE) Urine Cocaine Screen Neg (NEGATIVE) Urine Cannabinoids Screen Pos (NEGATIVE) Other Laboratory Tests 07/24/25 06:24 Brief Hx & Hospital Course: A 20-year-old female with a PMHx of anxiety, asthma, depression and ovarian cysts presented with abdominal pain, nausea vomiting, and constipation. She denied diarrhea, fever, or chills. Exam was notable for mild epigastric tenderness but otherwise unremarkable. Labs showed mild anemia (Hgb 11 g/dL, down from 13 g/dL), bland urinalysis, and abdominal CT revealed ovarian cysts without acute intra-abdominal findings. The patient admitted to occasional marijuana use, raising the possibility of cyclic vomiting syndrome, but she didnt have any vomiting during this admission. The clinical picture was most consistent with constipation contributing to her abdominal discomfort. Hospital Course: Patient was observed, remained hemodynamically stable, tolerated PO intake, and did not develop further symptoms, can be safely DC Physical exam on the day of discharge: General: Alert and oriented. HEENT: Moist mucous membranes. Raw mouth and sore throat noted, without trauma or swelling. Respiratory: Clear breath sounds. Cardiovascular: Regular heart rate and rhythm. Abdomen: Soft, non-tender abdomen with slight epigastric tenderness. Musculoskeletal: Lower extremity exam normal. Discharge Plan: Bowel regimen initiated for constipation Encourage hydration and fiber intake Continue home medications Avoid marijuana use given possible association with GI symptoms Outpatient follow-up with PCP and gynecology for ovarian cysts Return precautions given for worsening abdominal pain, intractable nausea/vomiting, or fever Counseled for 22 minutes on tobacco and marijuana use cessation; including exclusive 16 minutes for tobacco use cessation Goals of care discussed with the patient for 20 minutes; full code Case discussed with Dr Chacon Operations or Procedures INDICATION: colitis EXAM DATE: 07/22/2025 01:50 PM COMPARISON: US PELVIC on DOS: 06/09/23, CT CT AB PEL WO CON-NO ORAL OR IV on DOS: 06/08/23, CT ABD PELVIS WO CONTRAST on DOS: 12/17/21 RADIATION DOSE: CTDIvol: 11 mGy, DLP: 583 mGy*cm PROCEDURE: Helical CT images were obtained of the abdomen and pelvis without IV contrast Sagittal and coronal reconstructions are provided. ORAL CONTRAST: None. ADDITIONAL IMAGES / REFORMATS: None All CT scans at this medical facility are performed using dose modulation techniques as appropriate to a performed exam including the following: Automated exposure control was utilized; adjustment of the MA and/or KV according to patient size; and use of iterative reconstruction technique. FINDINGS: LUNG BASE: Normal. LIVER: Normal. GALLBLADDER AND BILIARY TREE: No calcified gallstones. Normal caliber wall. No intra- or extrahepatic biliary ductal dilation. PANCREAS: Normal. SPLEEN: Normal. BOWEL: Normal. Normal appendix. ADRENALS: Normal. KIDNEYS AND URETER: Normal. BLADDER: Normal. REPRODUCTIVE ORGANS: 4.9 cm left ovarian cystic lesion. LYMPH NODES:No lymphadenopathy. PERITONEUM: No ascites or free air. No other fluid collection. VESSELS: Normal RETROPERITONEUM: Normal. ABDOMINAL WALL: Normal. BONES: Normal. IMPRESSION: No acute intraabdominal abnormality. 4.9 cm left ovarian cystic lesion is incompletely characterized. Consider pelvic US. Condition at Discharge: Stable Final Diagnosis/Problems List Intractable Abdominal pain, resolved Intractable Nausea and vomiting, resolved Severe constipation Dehydration possible cyclic vomiting canabis syndrome H/o Anxiety and depression H/o Asthma Ovarian cysts Cholelithiasis w/o cholecystitis Polysubstance (tobacco, marijuana) use disorder Discharge Disposition: Home Discharge Instruct/Medications Diet: Regular Diet comment: advance slowly, clear liquid diet for 2 days Activity: Light activity Follow Up/Referral: d/c clinic within one week; PCP within 1 to 2 weeks; Gynecology within 2 to 4 weeks Medications: see prescription Scheduled Amoxicillin & Pot Clavulanate (Augmentin Tablet), 1 TAB PO BID Amoxicillin & Pot Clavulanate (Augmentin Tablet), 875 MG PO BID Cephalexin Monohydrate (Cephalexin), 1 CAP PO QID Docusate Sodium (Colace), 1 CAP PO BID Ondansetron Odt 4MG Tab (Zofran Po), 1 TAB PO Q8HR Discontinued Medications Dicyclomine Hcl (Bentyl Capsule), 2 TAB PO TID Ibuprofen (Ibuprofen), 1 TAB PO TID Ondansetron Odt 4MG Tab (Zofran Po), 4 MG PO Q8HP PRN Pantoprazole Sodium Sesquihydr (Protonix), 40 MG PO DAILY Discharge Statement: "Patient was advised to return to the ER or call 911 if any headaches, dizziness, shortness of breath, chest pain, abdominal pain, bleeding, fevers, or worsening of medical condition. Patient was counseled about treatment plan, medications, possible side effects, patientverbalized understanding. All questions were answered to the best of my ability. This discharge took greater then 30 minutes in planning, reviewing documentation, counseling the patient, and discussing with other team members." ASSESSMENT ASSESSMENT Assessment Intractable vomit and nausea Addendum Addendum Addendum I was physically present for the worley portions of the service provided to patient by THE RESIDENT. I have reviewed the documentation, discussed the case with resident and agree with the resident's documentation except as noted. Also the patient's clinical case was discussed with the patient's nurse. This medical document was created using an electronic medical record system with computerized dictation system. Although this document has been carefully reviewed, there might still be some phonetic and typographical errors. These areas are purely typographical due to imperfections of the software programs, and do not reflect any compromise in the patient's medical care. Late signature. Date of Service: Jul 24, 2025 Billing Provider: DONELL CHACON MD Common Visit Codes: 86452-HQC/OBS DISCH DAY >30min Secondary Visit Codes: 61591-VZSLE CHNG SMOKING >10MIN (Counseled for 22 minutes on tobacco and marijuana use cessation; including exclusive 16 minutes for tobacco use cessation), 42779-[id number] CARE PLAN 30 MINUTES (20 minutes) SHAUNA GILBERT RESIDENT Jul 24, 2025 18:08 DONELL CHACON MD Jul 25, 2025 10:08
== END 2025-07-24 15:37 | disposition home or self-care (01) | DRG 254 ==
LOC: ER 11:04 → OVERFLOW 15:22 → EAST 07-23 17:43
PROVIDERS: ADMIT Internal Medicine; ATTEND Internal Medicine
DX: K59.00 Constipation, unspecified (principal); E86.0 Dehydration; R11.15 Cyclical vomiting syndrome unrelated to migraine; K80.20 Calculus of gallbladder without cholecystitis without obstruction; F12.90 Cannabis use, unspecified, uncomplicated; F17.210 Nicotine dependence, cigarettes, uncomplicated; F32.A Depression, unspecified; J45.909 Unspecified asthma, uncomplicated; F41.9 Anxiety disorder, unspecified; N83.202 Unspecified ovarian cyst, left side; Z82.49 Family history of ischemic heart disease and other diseases of the circulatory system
CPT/HCPCS: 36415; 74176; 76705; 80048; 80053; 80307; 81001; 82962; 83690; 83735; 84702; 85007; 85025; 85027; 96361; 96374; 96375; G0378; J2405